=== PATIENT | male | born 1960 | race Caucasian/White ===

== ENCOUNTER 2021-12-15 12:09 | Inpatient (IN) | payer OTHER ==
[2021-12-15 13:09] VITALS: BMI 28.8
[2021-12-15] MEDS ORDERED: ACETAMINOPHEN 325 MG TABLET (FP) PO PRN (13:35)
[2021-12-15] MEDS ORDERED: IBUPROFEN 400 MG TABLET (FP) PO PRN (13:35)
[2021-12-15] MEDS ORDERED: guaiFENesin 200 MG/10 ML 10 ML UNIT-DOSE CUPS PO PRN (13:35)
[2021-12-15] MEDS ORDERED: MAGNESIUM CITRATE 300 ML BOTTLE PO PRN (13:35)
[2021-12-15] MEDS ORDERED: MAGNESIUM HYDROX 2400MG/30ML ORAL SUSPENSION 30 ML CUP PO PRN (13:35)
[2021-12-15] MEDS ORDERED: LOPERAMIDE HCL 2 MG CAPSULE PO PRN (13:35)
[2021-12-15] MEDS ORDERED: P-EPHED 60MG/TRIPROLIDI 2.5MG TABLET PO PRN (13:35)
[2021-12-15] MEDS ORDERED: LISINOPRIL 20 MG TABLET PO ONE (16:30)
[2021-12-15] MEDS ORDERED: LISINOPRIL 10 MG TABLET ONE (16:35)
[2021-12-15] MEDS: PRENATAL VITAMINS W/ FOLIC ACID TABLET (FP) PO SCH (16:58)
[2021-12-15] MEDS: hydrOXYzine PAMOATE 25 MG CAPSULE (FP) PO SCH ×3 (16:58→21:42)
[2021-12-15] MEDS ORDERED: TUBERCULIN PPD 5 TU/0.1ML VIAL ID ONE (17:20)
[2021-12-15] MEDS: NIFEdipine E.R. 90 MG TABLET PO SCH (17:38)
[2021-12-15] MEDS: MELATONIN 5 MG TABLETS PO SCH (21:42)
[2021-12-15] MEDS: THIAMINE HCL 100 MG TABLET (FP) PO SCH (21:42)
[2021-12-15] MEDS ORDERED: PATIENT'S OWN MEDICATION (NON-FORMULARY) (Lisinopril [Lisinopril] 40 MG Tablet) PO SCH (22:00)
[2021-12-16 02:40] LABS: EPI CELLS 3 /uL (0-25.1); HYALINE CASTS 1 /uL (0-3.1); URINE APPEARANCE TURBID; URINE BACTERIA 3 /uL (0-1359); URINE BILIRUBIN NEGATIVE (NEGATIVE); URINE COLOR YELLOW; URINE GLUCOSE (UA) NEGATIVE (NEGATIVE); URINE KETONE TRACE (NEGATIVE); URINE LEUK ESTERASE NEGATIVE (NEGATIVE); URINE NITRITE NEGATIVE (NEGATIVE); URINE PROTEIN NEGATIVE (NEGATIVE); URINE RBC 193 /uL (0-23.9); URINE WBC 6 /uL (0-25.8)
[2021-12-16] MEDS: methaDONE HCL 40 MG DISPERSABLE TABLET PO SCH (06:07)
[2021-12-16] MEDS: hydrOXYzine PAMOATE 25 MG CAPSULE (FP) PO SCH (06:07)
[2021-12-16] MEDS: PRENATAL VITAMINS W/ FOLIC ACID TABLET (FP) PO SCH (10:45)
[2021-12-16] MEDS: NIFEdipine E.R. 90 MG TABLET PO SCH (10:46)
[2021-12-16] MEDS: hydrOXYzine PAMOATE 25 MG CAPSULE (FP) PO PRN (10:46)
[2021-12-16] MEDS: LISINOPRIL 20 MG TABLET PO SCH ×2 (10:46→21:26)
[2021-12-16 13:04] LABS: HEMATOCRIT 32.3 % (35.4-49); MCH 30.4 pg (25.7-33.7); MEAN CELL VOLUME 89.4 fl (80-96); MEAN PLT VOLUME 9.2 fl (7.5-11.1); PLATELET COUNT 185 10^3/uL (134-434); RBC 3.61 M/mm3 (4.00-5.60); RDW 14.4 % (11.9-15.9); WHITE BLOOD COUNT 5.8 K/mm3 (4.0-10.0)
[2021-12-16 13:15] LABS: CALCIUM 8.2 mg/dL (8.5-10.1)
[2021-12-16 13:16] LABS: ALBUMIN 3.4 g/dl (3.4-5.0); BLOOD UREA NITROGEN 19.2 mg/dL (7-18)
[2021-12-16 13:19] LABS: CREATININE 1.1 mg/dL (0.55-1.3)
[2021-12-16 13:21] LABS: BILIRUBIN,TOTAL 0.7 mg/dL (0.2-1)
[2021-12-16 13:31] LABS: SYPHILIS W/ RPR CONF NON-REACTIVE (NONREACTIVE)
[2021-12-16] MEDS: THIAMINE HCL 100 MG TABLET (FP) PO SCH (21:26)
[2021-12-16] MEDS: MELATONIN 5 MG TABLETS PO SCH (21:26)
[2021-12-17] MEDS: methaDONE HCL 40 MG DISPERSABLE TABLET PO SCH (06:01)
[2021-12-17] MEDS: LISINOPRIL 20 MG TABLET PO SCH ×2 (11:16→22:23)
[2021-12-17] MEDS: PRENATAL VITAMINS W/ FOLIC ACID TABLET (FP) PO SCH (11:16)
[2021-12-17] MEDS: NIFEdipine E.R. 90 MG TABLET PO SCH (11:16)
[2021-12-17 14:11] LABS: SARS-CoV-2 NAA Not Detected (Not Detected)
[2021-12-17] MEDS: MELATONIN 5 MG TABLETS PO SCH (21:13)
[2021-12-17] MEDS: hydrOXYzine PAMOATE 25 MG CAPSULE (FP) PO PRN (21:13)
[2021-12-17] MEDS: THIAMINE HCL 100 MG TABLET (FP) PO SCH (21:13)
[2021-12-18] MEDS: methaDONE HCL 40 MG DISPERSABLE TABLET PO SCH (06:32)
[2021-12-18] MEDS: PRENATAL VITAMINS W/ FOLIC ACID TABLET (FP) PO SCH (10:26)
[2021-12-18] MEDS: NIFEdipine E.R. 90 MG TABLET PO SCH (10:27)
[2021-12-18] MEDS: LISINOPRIL 20 MG TABLET PO SCH ×2 (10:27→21:20)
[2021-12-18] MEDS: THIAMINE HCL 100 MG TABLET (FP) PO SCH (21:20)
[2021-12-18] MEDS: MELATONIN 5 MG TABLETS PO SCH (21:20)
[2021-12-19] MEDS: methaDONE HCL 40 MG DISPERSABLE TABLET PO SCH (06:17)
[2021-12-19] MEDS: NIFEdipine E.R. 90 MG TABLET PO SCH (10:34)
[2021-12-19] MEDS: LISINOPRIL 20 MG TABLET PO SCH ×2 (10:34→21:41)
[2021-12-19] MEDS: PRENATAL VITAMINS W/ FOLIC ACID TABLET (FP) PO SCH (10:35)
[2021-12-19] MEDS: valACYclovir HCL 500 MG TABLET (FP) PO SCH ×2 (12:07→21:41)
[2021-12-19] MEDS: MELATONIN 5 MG TABLETS PO SCH (21:42)
[2021-12-19] MEDS: THIAMINE HCL 100 MG TABLET (FP) PO SCH (21:42)
[2021-12-20] MEDS: methaDONE HCL 40 MG DISPERSABLE TABLET PO SCH (06:08)
[2021-12-20] MEDS: PRENATAL VITAMINS W/ FOLIC ACID TABLET (FP) PO SCH (09:54)
[2021-12-20] MEDS: LISINOPRIL 20 MG TABLET PO SCH ×2 (09:55→21:10)
[2021-12-20] MEDS: NIFEdipine E.R. 90 MG TABLET PO SCH (09:56)
[2021-12-20] MEDS: MELATONIN 5 MG TABLETS PO SCH (21:09)
[2021-12-20] MEDS: THIAMINE HCL 100 MG TABLET (FP) PO SCH (21:10)
[2021-12-21] MEDS: methaDONE HCL 40 MG DISPERSABLE TABLET PO SCH (06:21)
[2021-12-21] MEDS: LISINOPRIL 20 MG TABLET PO SCH ×2 (09:22→21:24)
[2021-12-21] MEDS: PRENATAL VITAMINS W/ FOLIC ACID TABLET (FP) PO SCH (09:22)
[2021-12-21] MEDS: NIFEdipine E.R. 90 MG TABLET PO SCH (09:23)
[2021-12-21] MEDS: THIAMINE HCL 100 MG TABLET (FP) PO SCH (21:24)
[2021-12-21] MEDS: MELATONIN 5 MG TABLETS PO SCH (21:24)
[2021-12-22] MEDS: methaDONE HCL 40 MG DISPERSABLE TABLET PO SCH (06:26)
[2021-12-22] MEDS ORDERED: diphenhydrAMINE HCL 25 MG CAPSULE (FP) PO PRN (09:13)
[2021-12-22] MEDS: PRENATAL VITAMINS W/ FOLIC ACID TABLET (FP) PO SCH (10:35)
[2021-12-22] MEDS: LISINOPRIL 20 MG TABLET PO SCH ×2 (10:35→21:18)
[2021-12-22] MEDS: NIFEdipine E.R. 90 MG TABLET PO SCH (10:35)
[2021-12-22] MEDS: THIAMINE HCL 100 MG TABLET (FP) PO SCH (21:17)
[2021-12-23] MEDS: methaDONE HCL 40 MG DISPERSABLE TABLET PO SCH (06:51)
[2021-12-23] MEDS: PRENATAL VITAMINS W/ FOLIC ACID TABLET (FP) PO SCH (10:18)
[2021-12-23] MEDS: LISINOPRIL 20 MG TABLET PO SCH ×2 (10:18→21:33)
[2021-12-23] MEDS: NIFEdipine E.R. 90 MG TABLET PO SCH (10:18)
[2021-12-23] MEDS: THIAMINE HCL 100 MG TABLET (FP) PO SCH (21:33)
[2021-12-23] MEDS: diphenhydrAMINE HCL 25 MG CAPSULE (FP) PO PRN (21:34)
[2021-12-24] MEDS: methaDONE HCL 40 MG DISPERSABLE TABLET PO SCH (06:25)
[2021-12-24] MEDS: PRENATAL VITAMINS W/ FOLIC ACID TABLET (FP) PO SCH (09:54)
[2021-12-24] MEDS: LISINOPRIL 20 MG TABLET PO SCH ×2 (09:54→21:19)
[2021-12-24] MEDS: NIFEdipine E.R. 90 MG TABLET PO SCH (09:54)
[2021-12-24] MEDS: hydrOXYzine PAMOATE 25 MG CAPSULE (FP) PO PRN (21:20)
[2021-12-24] MEDS: THIAMINE HCL 100 MG TABLET (FP) PO SCH (21:20)
[2021-12-25] MEDS: methaDONE HCL 40 MG DISPERSABLE TABLET PO SCH (06:31)
[2021-12-25] MEDS: LISINOPRIL 20 MG TABLET PO SCH ×2 (09:22→21:47)
[2021-12-25] MEDS: NIFEdipine E.R. 90 MG TABLET PO SCH (09:22)
[2021-12-25] MEDS: PRENATAL VITAMINS W/ FOLIC ACID TABLET (FP) PO SCH (09:22)
[2021-12-25] MEDS: hydrOXYzine PAMOATE 25 MG CAPSULE (FP) PO PRN (21:47)
[2021-12-25] MEDS: THIAMINE HCL 100 MG TABLET (FP) PO SCH (21:47)
[2021-12-26] MEDS: methaDONE HCL 40 MG DISPERSABLE TABLET PO SCH (06:30)
[2021-12-26] MEDS: NIFEdipine E.R. 90 MG TABLET PO SCH (10:17)
[2021-12-26] MEDS: PRENATAL VITAMINS W/ FOLIC ACID TABLET (FP) PO SCH (10:17)
[2021-12-26] MEDS: LISINOPRIL 20 MG TABLET PO SCH ×2 (10:17→21:24)
[2021-12-26] MEDS ORDERED: ZINC OXIDE/PETROLATUM,WHITE 1 APPLIC OINT...G. TP PRN (11:35)
[2021-12-26] MEDS: THIAMINE HCL 100 MG TABLET (FP) PO SCH (21:24)
[2021-12-26] MEDS: diphenhydrAMINE HCL 25 MG CAPSULE (FP) PO PRN (21:24)
[2021-12-27] MEDS: methaDONE HCL 40 MG DISPERSABLE TABLET PO SCH (06:26)
[2021-12-27] MEDS: PRENATAL VITAMINS W/ FOLIC ACID TABLET (FP) PO SCH (09:25)
[2021-12-27] MEDS: NIFEdipine E.R. 90 MG TABLET PO SCH (09:25)
[2021-12-27] MEDS: LISINOPRIL 20 MG TABLET PO SCH ×2 (10:38→21:17)
[2021-12-27] MEDS: THIAMINE HCL 100 MG TABLET (FP) PO SCH (21:16)
[2021-12-27] MEDS: diphenhydrAMINE HCL 25 MG CAPSULE (FP) PO PRN (21:17)
[2021-12-28] MEDS: methaDONE HCL 40 MG DISPERSABLE TABLET PO SCH (06:28)
[2021-12-28] MEDS: NIFEdipine E.R. 90 MG TABLET PO SCH (10:15)
[2021-12-28] MEDS: PRENATAL VITAMINS W/ FOLIC ACID TABLET (FP) PO SCH (10:15)
[2021-12-28] MEDS: LISINOPRIL 20 MG TABLET PO SCH ×2 (10:15→21:13)
[2021-12-28] MEDS: THIAMINE HCL 100 MG TABLET (FP) PO SCH (21:13)
[2021-12-28] MEDS: diphenhydrAMINE HCL 25 MG CAPSULE (FP) PO PRN (21:13)
[2021-12-29] MEDS: methaDONE HCL 40 MG DISPERSABLE TABLET PO SCH (06:03)
[2021-12-29] MEDS: LISINOPRIL 20 MG TABLET PO SCH ×2 (10:11→21:16)
[2021-12-29] MEDS: PRENATAL VITAMINS W/ FOLIC ACID TABLET (FP) PO SCH (10:12)
[2021-12-29] MEDS: NIFEdipine E.R. 90 MG TABLET PO SCH (10:12)
[2021-12-29] MEDS: THIAMINE HCL 100 MG TABLET (FP) PO SCH (21:16)
[2021-12-29] MEDS: diphenhydrAMINE HCL 25 MG CAPSULE (FP) PO PRN (21:16)
[2021-12-30] MEDS: methaDONE HCL 40 MG DISPERSABLE TABLET PO SCH (06:03)
[2021-12-30] MEDS: PRENATAL VITAMINS W/ FOLIC ACID TABLET (FP) PO SCH (10:39)
[2021-12-30] MEDS: LISINOPRIL 20 MG TABLET PO SCH ×2 (10:40→21:33)
[2021-12-30] MEDS: NIFEdipine E.R. 90 MG TABLET PO SCH (10:41)
[2021-12-30] MEDS: THIAMINE HCL 100 MG TABLET (FP) PO SCH (21:33)
[2021-12-30] MEDS: diphenhydrAMINE HCL 25 MG CAPSULE (FP) PO PRN (21:35)
[2021-12-31] MEDS: methaDONE HCL 40 MG DISPERSABLE TABLET PO SCH (06:39)
[2021-12-31] MEDS: PRENATAL VITAMINS W/ FOLIC ACID TABLET (FP) PO SCH (10:14)
[2021-12-31] MEDS: LISINOPRIL 20 MG TABLET PO SCH ×2 (10:14→21:16)
[2021-12-31] MEDS: NIFEdipine E.R. 90 MG TABLET PO SCH (10:15)
[2021-12-31] MEDS: diphenhydrAMINE HCL 25 MG CAPSULE (FP) PO PRN (21:16)
[2021-12-31] MEDS: THIAMINE HCL 100 MG TABLET (FP) PO SCH (21:16)
[2022-01-01] MEDS: methaDONE HCL 40 MG DISPERSABLE TABLET PO SCH (05:50)
[2022-01-01] MEDS: LISINOPRIL 20 MG TABLET PO SCH ×2 (09:24→21:15)
[2022-01-01] MEDS: PRENATAL VITAMINS W/ FOLIC ACID TABLET (FP) PO SCH (09:24)
[2022-01-01] MEDS: NIFEdipine E.R. 90 MG TABLET PO SCH (09:24)
[2022-01-01] MEDS: COLLOIDAL OATMEAL 1 BAR EACH TP PRN (09:26)
[2022-01-01] MEDS: diphenhydrAMINE HCL 25 MG CAPSULE (FP) PO PRN (21:15)
[2022-01-01] MEDS: THIAMINE HCL 100 MG TABLET (FP) PO SCH (21:15)
[2022-01-02] MEDS: methaDONE HCL 40 MG DISPERSABLE TABLET PO SCH (06:22)
[2022-01-02] MEDS: PRENATAL VITAMINS W/ FOLIC ACID TABLET (FP) PO SCH (09:52)
[2022-01-02] MEDS: NIFEdipine E.R. 90 MG TABLET PO SCH (09:52)
[2022-01-02] MEDS: LISINOPRIL 20 MG TABLET PO SCH ×2 (09:52→21:55)
[2022-01-02] MEDS: THIAMINE HCL 100 MG TABLET (FP) PO SCH (21:55)
[2022-01-02] MEDS: diphenhydrAMINE HCL 25 MG CAPSULE (FP) PO PRN (21:56)
[2022-01-03] MEDS: methaDONE HCL 40 MG DISPERSABLE TABLET PO SCH (06:03)
[2022-01-03] MEDS: PRENATAL VITAMINS W/ FOLIC ACID TABLET (FP) PO SCH (10:43)
[2022-01-03] MEDS: NIFEdipine E.R. 90 MG TABLET PO SCH (10:44)
[2022-01-03] MEDS: LISINOPRIL 20 MG TABLET PO SCH ×2 (10:44→21:14)
[2022-01-03] MEDS: THIAMINE HCL 100 MG TABLET (FP) PO SCH (21:14)
[2022-01-03] MEDS: diphenhydrAMINE HCL 25 MG CAPSULE (FP) PO PRN (21:14)
[2022-01-04] MEDS: methaDONE HCL 40 MG DISPERSABLE TABLET PO SCH (05:39)
[2022-01-04] MEDS: PRENATAL VITAMINS W/ FOLIC ACID TABLET (FP) PO SCH (10:26)
[2022-01-04] MEDS: NIFEdipine E.R. 90 MG TABLET PO SCH (10:26)
[2022-01-04] MEDS: LISINOPRIL 20 MG TABLET PO SCH ×2 (10:27→21:20)
[2022-01-04] MEDS: THIAMINE HCL 100 MG TABLET (FP) PO SCH (21:19)
[2022-01-04] MEDS: diphenhydrAMINE HCL 25 MG CAPSULE (FP) PO PRN (21:20)
[2022-01-05] MEDS: methaDONE HCL 40 MG DISPERSABLE TABLET PO SCH (06:02)
[2022-01-05] MEDS: PRENATAL VITAMINS W/ FOLIC ACID TABLET (FP) PO SCH (09:56)
[2022-01-05] MEDS: NIFEdipine E.R. 90 MG TABLET PO SCH (09:57)
[2022-01-05] MEDS: LISINOPRIL 20 MG TABLET PO SCH ×2 (09:57→21:10)
[2022-01-05] MEDS: COLLOIDAL OATMEAL 1 BAR EACH TP PRN (19:46)
[2022-01-05] MEDS: THIAMINE HCL 100 MG TABLET (FP) PO SCH (21:10)
[2022-01-05] MEDS: diphenhydrAMINE HCL 25 MG CAPSULE (FP) PO PRN (21:10)
[2022-01-06] MEDS: methaDONE HCL 40 MG DISPERSABLE TABLET PO SCH (06:04)
[2022-01-06] MEDS: PRENATAL VITAMINS W/ FOLIC ACID TABLET (FP) PO SCH (10:14)
[2022-01-06] MEDS: LISINOPRIL 20 MG TABLET PO SCH ×2 (10:14→21:49)
[2022-01-06] MEDS: NIFEdipine E.R. 90 MG TABLET PO SCH (10:14)
[2022-01-06] MEDS: THIAMINE HCL 100 MG TABLET (FP) PO SCH (21:49)
[2022-01-06] MEDS: diphenhydrAMINE HCL 25 MG CAPSULE (FP) PO PRN (21:50)
[2022-01-07] MEDS: methaDONE HCL 40 MG DISPERSABLE TABLET PO SCH (06:09)
[2022-01-07] MEDS: NIFEdipine E.R. 90 MG TABLET PO SCH (09:39)
[2022-01-07] MEDS: PRENATAL VITAMINS W/ FOLIC ACID TABLET (FP) PO SCH (09:39)
[2022-01-07] MEDS: LISINOPRIL 20 MG TABLET PO SCH ×2 (09:39→21:39)
[2022-01-07] MEDS: MAG HYDROX/AL HYDROX/SIMETH 30 ML UNIT-DOSE CUP PO PRN (12:44)
[2022-01-07] MEDS: diphenhydrAMINE HCL 25 MG CAPSULE (FP) PO PRN (21:40)
[2022-01-07] MEDS: THIAMINE HCL 100 MG TABLET (FP) PO SCH (21:40)
[2022-01-08] MEDS: PANTOPRAZOLE 40 MG TABLET PO SCH ×2 (06:26→10:06)
[2022-01-08] MEDS: methaDONE HCL 40 MG DISPERSABLE TABLET PO SCH (06:26)
[2022-01-08] MEDS: MAG HYDROX/AL HYDROX/SIMETH 30 ML UNIT-DOSE CUP PO PRN (08:19)
[2022-01-08] MEDS: PRENATAL VITAMINS W/ FOLIC ACID TABLET (FP) PO SCH (10:05)
[2022-01-08] MEDS: LISINOPRIL 20 MG TABLET PO SCH ×2 (10:05→21:35)
[2022-01-08] MEDS: NIFEdipine E.R. 90 MG TABLET PO SCH (10:06)
[2022-01-08] MEDS: THIAMINE HCL 100 MG TABLET (FP) PO SCH (21:36)
[2022-01-08] MEDS: diphenhydrAMINE HCL 25 MG CAPSULE (FP) PO PRN (21:37)
[2022-01-09] MEDS: methaDONE HCL 40 MG DISPERSABLE TABLET PO SCH (06:09)
[2022-01-09] MEDS: PRENATAL VITAMINS W/ FOLIC ACID TABLET (FP) PO SCH (09:38)
[2022-01-09] MEDS: NIFEdipine E.R. 90 MG TABLET PO SCH (09:38)
[2022-01-09] MEDS: LISINOPRIL 20 MG TABLET PO SCH ×2 (09:39→21:31)
[2022-01-09] MEDS: PANTOPRAZOLE 40 MG TABLET PO SCH (09:39)
[2022-01-09] MEDS: THIAMINE HCL 100 MG TABLET (FP) PO SCH (21:31)
[2022-01-09] MEDS: diphenhydrAMINE HCL 25 MG CAPSULE (FP) PO PRN (21:32)
[2022-01-10] MEDS: methaDONE HCL 40 MG DISPERSABLE TABLET PO SCH (06:10)
[2022-01-10] MEDS: LISINOPRIL 20 MG TABLET PO SCH ×2 (09:49→21:23)
[2022-01-10] MEDS: PRENATAL VITAMINS W/ FOLIC ACID TABLET (FP) PO SCH (09:49)
[2022-01-10] MEDS: NIFEdipine E.R. 90 MG TABLET PO SCH (09:49)
[2022-01-10] MEDS: PANTOPRAZOLE 40 MG TABLET PO SCH (09:50)
[2022-01-10 11:34] LABS: CALCIUM 8.9 mg/dL (8.5-10.1)
[2022-01-10 11:35] LABS: ALBUMIN 3.8 g/dl (3.4-5.0)
[2022-01-10 11:38] LABS: CREATININE 1.1 mg/dL (0.55-1.3)
[2022-01-10 11:39] LABS: BILIRUBIN,TOTAL 0.5 mg/dL (0.2-1)
[2022-01-10] MEDS: THIAMINE HCL 100 MG TABLET (FP) PO SCH (21:22)
[2022-01-10] MEDS: diphenhydrAMINE HCL 25 MG CAPSULE (FP) PO PRN (21:22)
[2022-01-11] MEDS: methaDONE HCL 40 MG DISPERSABLE TABLET PO SCH (05:26)
[2022-01-11] MEDS: PRENATAL VITAMINS W/ FOLIC ACID TABLET (FP) PO SCH (10:08)
[2022-01-11] MEDS: PANTOPRAZOLE 40 MG TABLET PO SCH (10:08)
[2022-01-11] MEDS: NIFEdipine E.R. 90 MG TABLET PO SCH (10:08)
[2022-01-11] MEDS: LISINOPRIL 20 MG TABLET PO SCH ×2 (10:08→21:16)
[2022-01-11] MEDS: THIAMINE HCL 100 MG TABLET (FP) PO SCH (21:16)
[2022-01-11] MEDS: diphenhydrAMINE HCL 25 MG CAPSULE (FP) PO PRN (21:16)
[2022-01-12] MEDS: methaDONE HCL 40 MG DISPERSABLE TABLET PO SCH (06:25)
[2022-01-12 07:15] VITALS: TEMP 98.8
[2022-01-12] MEDS: PRENATAL VITAMINS W/ FOLIC ACID TABLET (FP) PO SCH (09:44)
[2022-01-12] MEDS: NIFEdipine E.R. 90 MG TABLET PO SCH (09:44)
[2022-01-12] MEDS: LISINOPRIL 20 MG TABLET PO SCH ×2 (09:44→21:17)
[2022-01-12] MEDS: PANTOPRAZOLE 40 MG TABLET PO SCH (09:45)
[2022-01-12] MEDS: THIAMINE HCL 100 MG TABLET (FP) PO SCH (21:17)
[2022-01-12] MEDS: diphenhydrAMINE HCL 25 MG CAPSULE (FP) PO PRN (21:17)
[2022-01-13] MEDS: methaDONE HCL 40 MG DISPERSABLE TABLET PO SCH (06:08)
[2022-01-13 07:13] VITALS: BP 152/94; PULSE 75
[2022-01-13] MEDS: PRENATAL VITAMINS W/ FOLIC ACID TABLET (FP) PO SCH (09:13)
[2022-01-13] MEDS: NIFEdipine E.R. 90 MG TABLET PO SCH (09:14)
[2022-01-13] MEDS: LISINOPRIL 20 MG TABLET PO SCH (09:14)
[2022-01-13] MEDS: PANTOPRAZOLE 40 MG TABLET PO SCH (09:15)
== END 2022-01-13 09:30 | disposition home or self-care (01) | DRG 772 ==
LOC: YASAS 12:09 → Y3W 15:39
PROVIDERS: ADMIT Allergy & Immunology; ATTEND Allergy & Immunology
PROC: HZ42ZZZ Group Counseling for Substance Abuse Treatment, Cognitive-Behavioral (ICD-10-PCS; principal; 2021-12-15)
DX: F11.20 Opioid dependence, uncomplicated (principal); F14.20 Cocaine dependence, uncomplicated; F19.282 Other psychoactive substance dependence with psychoactive substance-induced sleep disorder; F19.24 Other psychoactive substance dependence with psychoactive substance-induced mood disorder; I10 Essential (primary) hypertension; E78.5 Hyperlipidemia, unspecified; R12 Heartburn; B00.1 Herpesviral vesicular dermatitis; M54.30 Sciatica, unspecified side; Z87.891 Personal history of nicotine dependence; Z56.0 Unemployment, unspecified; Z59.00 Homelessness unspecified
CPT/HCPCS: 36415; 80053; 81003; 85027; 86780; 86803; 93005; 93010; C9803-CS; U0003; U0005

== ENCOUNTER 2023-02-24 12:29 | Inpatient (IN) | payer OTHER ==
[2023-02-24 13:21] VITALS: BMI 28.6
[2023-02-24] MEDS ORDERED: guaiFENesin 600 MG TABLET.ER (FP) PO PRN (14:29)
[2023-02-24] MEDS ORDERED: BENZONATATE 200 MG CAPSULE PO PRN (14:29)
[2023-02-24] MEDS ORDERED: LOPERAMIDE HCL 2 MG CAPSULE PO PRN (14:29)
[2023-02-24] MEDS ORDERED: TUBERCULIN PPD 5 TU/0.1ML SYRINGE (IN PATIENT USE ONLY) ID ONE (14:29)
[2023-02-24] MEDS ORDERED: MAG HYDROX/AL HYDROX/SIMETH 30 ML UNIT-DOSE CUP PO PRN (14:29)
[2023-02-24] MEDS ORDERED: BENZOCAINE/MENTHOL (CHLORASEPTIC ) LOZENGE MM PRN (14:29)
[2023-02-24] MEDS ORDERED: NALOXONE HCL 0.4 MG/ML VIAL IM PRN (14:29)
[2023-02-24] MEDS ORDERED: POLYETHYLENE GLYCOL (HEALTHYLAX) 3350 17 GM PACKET PO PRN (14:29)
[2023-02-24] MEDS ORDERED: MAGNESIUM HYDROX 2400MG/30ML ORAL SUSPENSION 30 ML CUP PO PRN (14:29)
[2023-02-24] MEDS ORDERED: IBUPROFEN 600 MG TABLET (FP) PO PRN (14:29)
[2023-02-24] MEDS ORDERED: AMMONIUM LACTATE 12% LOTION 225 GM BOTTLE TP PRN (14:29)
[2023-02-24] MEDS ORDERED: LIDOCAINE 5% TOPICAL PATCH TP PRN (14:29)
[2023-02-24] MEDS ORDERED: NALOXONE HCL (KLOXXADO) 8 MG SPRAY NS PRN (14:29)
[2023-02-24] MEDS ORDERED: IBUPROFEN 400 MG TABLET (FP) PO PRN (14:29)
[2023-02-24] MEDS ORDERED: TUBERCULIN PPD 5 TU/0.1ML VIAL ID ONE (16:43)
[2023-02-24] MEDS: MELATONIN 5 MG TABLETS PO SCH (21:18)
[2023-02-24] MEDS: THIAMINE HCL 100 MG TABLET (FP) PO SCH (21:18)
[2023-02-24] MEDS: LISINOPRIL 20 MG TABLET PO SCH (21:19)
[2023-02-24] MEDS: LIDOCAINE PATCH REMOVAL MC SCH (21:19)
[2023-02-24] MEDS: BISACODYL 5 MG TABLET.DR (FP) PO SCH ×2 (21:19→21:32)
[2023-02-25] MEDS ORDERED: TUBERCULIN PPD 5 TU/0.1ML VIAL ID ONE (05:58)
[2023-02-25] MEDS ORDERED: methaDONE HCL 40 MG DISPERSABLE TABLET PO ONE (06:00)
[2023-02-25 10:03] LABS: CALCIUM 8.8 mg/dL (8.5-10.1); CREATININE 0.9 mg/dL (0.55-1.3)
[2023-02-25 10:04] LABS: ALBUMIN 3.7 g/dl (3.4-5.0); BLOOD UREA NITROGEN 10.3 mg/dL (7-18)
[2023-02-25 10:05] LABS: BILIRUBIN,TOTAL 0.3 mg/dL (0.2-1); TOT PROT 7.2 g/dl (6.4-8.2)
[2023-02-25 10:07] LABS: HEMATOCRIT 36.7 % (35.4-49); HEMOGLOBIN 12.8 GM/dL (11.7-16.9); MCH 29.6 pg (25.7-33.7); MCHC 34.9 g/dl (32.0-35.9); MEAN PLT VOLUME 9.2 fl (7.5-11.1); PLATELET COUNT 247 10^3/uL (134-434); RBC 4.32 M/mm3 (4.00-5.60); RDW 14.5 % (11.9-15.9); WHITE BLOOD COUNT 4.6 K/mm3 (4.0-10.0)
[2023-02-25] MEDS: PRENATAL VITAMINS W/ FOLIC ACID TABLET (FP) PO SCH (10:09)
[2023-02-25] MEDS: LISINOPRIL 20 MG TABLET PO SCH ×2 (10:09→21:16)
[2023-02-25] MEDS: NIFEdipine E.R. 90 MG TABLET PO SCH (10:09)
[2023-02-25 10:53] LABS: SYPHILIS W/ RPR CONF NON-REACTIVE (NONREACTIVE)
[2023-02-25] MEDS: THIAMINE HCL 100 MG TABLET (FP) PO SCH (21:15)
[2023-02-25] MEDS: LIDOCAINE PATCH REMOVAL MC SCH (21:15)
[2023-02-25] MEDS: MELATONIN 5 MG TABLETS PO SCH (21:15)
[2023-02-25] MEDS: BISACODYL 5 MG TABLET.DR (FP) PO SCH (21:16)
[2023-02-26] MEDS: hydrOXYzine PAMOATE 25 MG CAPSULE (FP) PO PRN (01:49)
[2023-02-26] MEDS: methaDONE HCL 40 MG DISPERSABLE TABLET PO SCH (06:36)
[2023-02-26] MEDS: PRENATAL VITAMINS W/ FOLIC ACID TABLET (FP) PO SCH (09:46)
[2023-02-26] MEDS: LISINOPRIL 20 MG TABLET PO SCH ×2 (09:46→21:20)
[2023-02-26] MEDS: NIFEdipine E.R. 90 MG TABLET PO SCH (10:46)
[2023-02-26] MEDS: MELATONIN 5 MG TABLETS PO SCH (21:20)
[2023-02-26] MEDS: BISACODYL 5 MG TABLET.DR (FP) PO SCH (21:20)
[2023-02-26] MEDS: THIAMINE HCL 100 MG TABLET (FP) PO SCH (21:20)
[2023-02-26] MEDS: LIDOCAINE PATCH REMOVAL MC SCH (21:21)
[2023-02-26 23:19] LABS: PH,URINE 6.5 (5.0-8.0); URINE APPEARANCE CLEAR; URINE BILIRUBIN NEGATIVE (NEGATIVE); URINE COLOR YELLOW; URINE GLUCOSE (UA) NEGATIVE (NEGATIVE); URINE KETONE NEGATIVE (NEGATIVE); URINE LEUK ESTERASE NEGATIVE (NEGATIVE); URINE NITRITE NEGATIVE (NEGATIVE); URINE PROTEIN NEGATIVE (NEGATIVE); URINE UROBILINOGEN 0.2 mg/dL (0.2-1.0)
[2023-02-27] MEDS: methaDONE HCL 40 MG DISPERSABLE TABLET PO SCH (06:11)
[2023-02-27] MEDS: ACETAMINOPHEN 325 MG TABLET (FP) PO PRN (06:26)
[2023-02-27] MEDS: LISINOPRIL 20 MG TABLET PO SCH ×2 (10:02→21:42)
[2023-02-27] MEDS: PRENATAL VITAMINS W/ FOLIC ACID TABLET (FP) PO SCH (10:02)
[2023-02-27] MEDS: NIFEdipine E.R. 90 MG TABLET PO SCH (10:02)
[2023-02-27] MEDS: LIDOCAINE PATCH REMOVAL MC SCH (21:42)
[2023-02-27] MEDS: BISACODYL 5 MG TABLET.DR (FP) PO SCH (21:42)
[2023-02-27] MEDS: MELATONIN 5 MG TABLETS PO SCH (21:42)
[2023-02-27] MEDS: THIAMINE HCL 100 MG TABLET (FP) PO SCH (21:42)
[2023-02-28] MEDS: hydrOXYzine PAMOATE 25 MG CAPSULE (FP) PO PRN (02:26)
[2023-02-28] MEDS: ACETAMINOPHEN 325 MG TABLET (FP) PO PRN (02:26)
[2023-02-28] MEDS: methaDONE HCL 40 MG DISPERSABLE TABLET PO SCH (06:15)
[2023-02-28] MEDS: PRENATAL VITAMINS W/ FOLIC ACID TABLET (FP) PO SCH (09:29)
[2023-02-28] MEDS: LISINOPRIL 20 MG TABLET PO SCH ×2 (09:29→21:21)
[2023-02-28] MEDS: NIFEdipine E.R. 90 MG TABLET PO SCH (09:29)
[2023-02-28] MEDS ORDERED: PATIENT'S OWN MEDICATION (NON-FORMULARY) (Lisinopril [Lisinopril] 40 MG Tablet) PO SCH (14:00)
[2023-02-28] MEDS: BISACODYL 5 MG TABLET.DR (FP) PO SCH (21:21)
[2023-02-28] MEDS: LIDOCAINE PATCH REMOVAL MC SCH (21:21)
[2023-02-28] MEDS: THIAMINE HCL 100 MG TABLET (FP) PO SCH (21:21)
[2023-02-28] MEDS ORDERED: SUVOREXANT 10 MG TABLET PO PRN (22:00)
[2023-03-01] MEDS: methaDONE HCL 40 MG DISPERSABLE TABLET PO SCH (06:12)
[2023-03-01] MEDS: LISINOPRIL 20 MG TABLET PO SCH ×2 (09:55→21:09)
[2023-03-01] MEDS: PRENATAL VITAMINS W/ FOLIC ACID TABLET (FP) PO SCH (09:58)
[2023-03-01] MEDS: NIFEdipine E.R. 90 MG TABLET PO SCH (09:58)
[2023-03-01] MEDS: THIAMINE HCL 100 MG TABLET (FP) PO SCH (21:09)
[2023-03-01] MEDS: BISACODYL 5 MG TABLET.DR (FP) PO SCH (21:09)
[2023-03-01] MEDS: LIDOCAINE PATCH REMOVAL MC SCH (21:10)
[2023-03-01] MEDS: SUVOREXANT 15 MG TABLET PO PRN (21:11)
[2023-03-02] MEDS: methaDONE HCL 40 MG DISPERSABLE TABLET PO SCH (06:36)
[2023-03-02] MEDS: cloNIDine HCL 0.1 MG TABLET PO PRN (07:37)
[2023-03-02] MEDS: PRENATAL VITAMINS W/ FOLIC ACID TABLET (FP) PO SCH (10:14)
[2023-03-02] MEDS: LISINOPRIL 20 MG TABLET PO SCH ×2 (10:14→21:15)
[2023-03-02] MEDS: NIFEdipine E.R. 90 MG TABLET PO SCH (10:14)
[2023-03-02] MEDS: THIAMINE HCL 100 MG TABLET (FP) PO SCH (21:14)
[2023-03-02] MEDS: LIDOCAINE PATCH REMOVAL MC SCH (21:15)
[2023-03-02] MEDS: BISACODYL 5 MG TABLET.DR (FP) PO SCH (21:15)
[2023-03-02] MEDS: SUVOREXANT 15 MG TABLET PO PRN (21:15)
[2023-03-03] MEDS: methaDONE HCL 40 MG DISPERSABLE TABLET PO SCH (06:27)
[2023-03-03] MEDS: NIFEdipine E.R. 90 MG TABLET PO SCH (09:31)
[2023-03-03] MEDS: LISINOPRIL 20 MG TABLET PO SCH ×2 (09:31→21:39)
[2023-03-03] MEDS: PRENATAL VITAMINS W/ FOLIC ACID TABLET (FP) PO SCH (09:31)
[2023-03-03] MEDS: BISACODYL 5 MG TABLET.DR (FP) PO SCH (21:39)
[2023-03-03] MEDS: cloNIDine HCL 0.1 MG TABLET PO PRN (21:39)
[2023-03-03] MEDS: THIAMINE HCL 100 MG TABLET (FP) PO SCH (21:39)
[2023-03-03] MEDS: LIDOCAINE PATCH REMOVAL MC SCH (21:40)
[2023-03-03] MEDS: SUVOREXANT 15 MG TABLET PO PRN (21:40)
[2023-03-04] MEDS: methaDONE HCL 40 MG DISPERSABLE TABLET PO SCH (06:05)
[2023-03-04] MEDS: LISINOPRIL 20 MG TABLET PO SCH ×2 (10:13→21:43)
[2023-03-04] MEDS: NIFEdipine E.R. 90 MG TABLET PO SCH (10:13)
[2023-03-04] MEDS: PRENATAL VITAMINS W/ FOLIC ACID TABLET (FP) PO SCH (10:14)
[2023-03-04] MEDS: cloNIDine HCL 0.1 MG TABLET PO PRN (21:43)
[2023-03-04] MEDS: THIAMINE HCL 100 MG TABLET (FP) PO SCH (21:43)
[2023-03-04] MEDS: LIDOCAINE PATCH REMOVAL MC SCH (21:44)
[2023-03-04] MEDS: BISACODYL 5 MG TABLET.DR (FP) PO SCH (21:45)
[2023-03-04] MEDS: SUVOREXANT 15 MG TABLET PO PRN (21:45)
[2023-03-05] MEDS: methaDONE HCL 40 MG DISPERSABLE TABLET PO SCH ×2 (06:41→06:42)
[2023-03-05] MEDS: PRENATAL VITAMINS W/ FOLIC ACID TABLET (FP) PO SCH (09:35)
[2023-03-05] MEDS: NIFEdipine E.R. 90 MG TABLET PO SCH (09:35)
[2023-03-05] MEDS: LISINOPRIL 20 MG TABLET PO SCH ×2 (09:35→21:18)
[2023-03-05] MEDS: SUVOREXANT 15 MG TABLET PO PRN (21:18)
[2023-03-05] MEDS: THIAMINE HCL 100 MG TABLET (FP) PO SCH (21:18)
[2023-03-05] MEDS: cloNIDine HCL 0.1 MG TABLET PO PRN (21:18)
[2023-03-05] MEDS: BISACODYL 5 MG TABLET.DR (FP) PO SCH (21:19)
[2023-03-06] MEDS: methaDONE HCL 40 MG DISPERSABLE TABLET PO SCH (06:30)
[2023-03-06] MEDS: LISINOPRIL 20 MG TABLET PO SCH ×2 (09:53→21:14)
[2023-03-06] MEDS: PRENATAL VITAMINS W/ FOLIC ACID TABLET (FP) PO SCH (09:53)
[2023-03-06] MEDS: NIFEdipine E.R. 90 MG TABLET PO SCH (09:53)
[2023-03-06] MEDS: THIAMINE HCL 100 MG TABLET (FP) PO SCH (21:14)
[2023-03-06] MEDS: LIDOCAINE 5% TOPICAL PATCH TP SCH (21:15)
[2023-03-06] MEDS: BISACODYL 5 MG TABLET.DR (FP) PO SCH (21:15)
[2023-03-06] MEDS: SUVOREXANT 15 MG TABLET PO PRN (21:15)
[2023-03-07] MEDS: methaDONE HCL 40 MG DISPERSABLE TABLET PO SCH (06:13)
[2023-03-07] MEDS: PRENATAL VITAMINS W/ FOLIC ACID TABLET (FP) PO SCH (09:37)
[2023-03-07] MEDS: NIFEdipine E.R. 90 MG TABLET PO SCH (09:38)
[2023-03-07] MEDS: LISINOPRIL 20 MG TABLET PO SCH ×2 (09:38→21:14)
[2023-03-07] MEDS: LIDOCAINE PATCH REMOVAL MC SCH (10:21)
[2023-03-07] MEDS: LIDOCAINE 5% TOPICAL PATCH TP SCH ×2 (10:21→21:15)
[2023-03-07] MEDS: THIAMINE HCL 100 MG TABLET (FP) PO SCH (21:14)
[2023-03-07] MEDS: BISACODYL 5 MG TABLET.DR (FP) PO SCH (21:15)
[2023-03-07] MEDS: SUVOREXANT 15 MG TABLET PO PRN (21:15)
[2023-03-08] MEDS: methaDONE HCL 40 MG DISPERSABLE TABLET PO SCH (06:20)
[2023-03-08] MEDS: LISINOPRIL 20 MG TABLET PO SCH ×2 (10:24→21:12)
[2023-03-08] MEDS: PRENATAL VITAMINS W/ FOLIC ACID TABLET (FP) PO SCH (10:25)
[2023-03-08] MEDS: LIDOCAINE PATCH REMOVAL MC SCH (10:25)
[2023-03-08] MEDS: NIFEdipine E.R. 90 MG TABLET PO SCH (10:25)
[2023-03-08] MEDS: LIDOCAINE 5% TOPICAL PATCH TP SCH (21:13)
[2023-03-08] MEDS: THIAMINE HCL 100 MG TABLET (FP) PO SCH (21:13)
[2023-03-08] MEDS: BISACODYL 5 MG TABLET.DR (FP) PO SCH (21:13)
[2023-03-09] MEDS: methaDONE HCL 40 MG DISPERSABLE TABLET PO SCH (06:22)
[2023-03-09] MEDS: PRENATAL VITAMINS W/ FOLIC ACID TABLET (FP) PO SCH (09:27)
[2023-03-09] MEDS: LISINOPRIL 20 MG TABLET PO SCH ×2 (09:28→21:22)
[2023-03-09] MEDS: NIFEdipine E.R. 90 MG TABLET PO SCH (09:29)
[2023-03-09] MEDS: LIDOCAINE PATCH REMOVAL MC SCH (09:30)
[2023-03-09] MEDS: THIAMINE HCL 100 MG TABLET (FP) PO SCH (21:22)
[2023-03-09] MEDS: cloNIDine HCL 0.1 MG TABLET PO PRN (21:23)
[2023-03-09] MEDS: BISACODYL 5 MG TABLET.DR (FP) PO SCH (21:24)
[2023-03-09] MEDS ORDERED: LIDOCAINE 5% TOPICAL PATCH TP SCH (22:00)
[2023-03-10] MEDS: methaDONE HCL 40 MG DISPERSABLE TABLET PO SCH (06:19)
[2023-03-10] MEDS: LISINOPRIL 20 MG TABLET PO SCH ×2 (09:32→21:20)
[2023-03-10] MEDS: PRENATAL VITAMINS W/ FOLIC ACID TABLET (FP) PO SCH (09:32)
[2023-03-10] MEDS: LIDOCAINE PATCH REMOVAL MC SCH ×2 (09:32→21:19)
[2023-03-10] MEDS: NIFEdipine E.R. 90 MG TABLET PO SCH (09:32)
[2023-03-10] MEDS: LIDOCAINE 5% TOPICAL PATCH TP SCH (11:54)
[2023-03-10] MEDS: THIAMINE HCL 100 MG TABLET (FP) PO SCH (21:19)
[2023-03-10] MEDS: BISACODYL 5 MG TABLET.DR (FP) PO SCH (21:20)
[2023-03-11] MEDS: methaDONE HCL 40 MG DISPERSABLE TABLET PO SCH (06:13)
[2023-03-11] MEDS: LIDOCAINE 5% TOPICAL PATCH TP SCH (09:50)
[2023-03-11] MEDS: PRENATAL VITAMINS W/ FOLIC ACID TABLET (FP) PO SCH (09:51)
[2023-03-11] MEDS: LISINOPRIL 20 MG TABLET PO SCH ×2 (09:51→21:23)
[2023-03-11] MEDS: NIFEdipine E.R. 90 MG TABLET PO SCH (09:51)
[2023-03-11] MEDS: LIDOCAINE PATCH REMOVAL MC SCH ×2 (09:52→21:23)
[2023-03-11] MEDS: BISACODYL 5 MG TABLET.DR (FP) PO SCH (21:23)
[2023-03-11] MEDS: THIAMINE HCL 100 MG TABLET (FP) PO SCH (21:23)
[2023-03-11] MEDS: SUVOREXANT 15 MG TABLET PO PRN (21:24)
[2023-03-12] MEDS: methaDONE HCL 40 MG DISPERSABLE TABLET PO SCH (06:28)
[2023-03-12] MEDS: LIDOCAINE 5% TOPICAL PATCH TP SCH (09:47)
[2023-03-12] MEDS: LISINOPRIL 20 MG TABLET PO SCH ×2 (09:51→21:15)
[2023-03-12] MEDS: PRENATAL VITAMINS W/ FOLIC ACID TABLET (FP) PO SCH (09:51)
[2023-03-12] MEDS: NIFEdipine E.R. 90 MG TABLET PO SCH (09:52)
[2023-03-12] MEDS: LIDOCAINE PATCH REMOVAL MC SCH ×2 (09:52→21:16)
[2023-03-12] MEDS: BISACODYL 5 MG TABLET.DR (FP) PO SCH (21:15)
[2023-03-12] MEDS: THIAMINE HCL 100 MG TABLET (FP) PO SCH (21:15)
[2023-03-12] MEDS: SUVOREXANT 15 MG TABLET PO PRN (21:16)
[2023-03-13] MEDS: methaDONE HCL 40 MG DISPERSABLE TABLET PO SCH (06:10)
[2023-03-13] MEDS: PRENATAL VITAMINS W/ FOLIC ACID TABLET (FP) PO SCH (09:39)
[2023-03-13] MEDS: LIDOCAINE 5% TOPICAL PATCH TP SCH (09:40)
[2023-03-13] MEDS: LISINOPRIL 20 MG TABLET PO SCH ×2 (09:41→21:26)
[2023-03-13] MEDS: NIFEdipine E.R. 90 MG TABLET PO SCH (09:41)
[2023-03-13] MEDS: LIDOCAINE PATCH REMOVAL MC SCH ×2 (09:42→22:19)
[2023-03-13] MEDS: BISACODYL 5 MG TABLET.DR (FP) PO SCH (21:26)
[2023-03-13] MEDS: THIAMINE HCL 100 MG TABLET (FP) PO SCH (21:26)
[2023-03-13] MEDS: SUVOREXANT 15 MG TABLET PO PRN (21:26)
[2023-03-14] MEDS: methaDONE HCL 40 MG DISPERSABLE TABLET PO SCH (06:10)
[2023-03-14] MEDS: LIDOCAINE 5% TOPICAL PATCH TP SCH (09:33)
[2023-03-14] MEDS: PRENATAL VITAMINS W/ FOLIC ACID TABLET (FP) PO SCH (09:34)
[2023-03-14] MEDS: LISINOPRIL 20 MG TABLET PO SCH ×2 (09:34→21:03)
[2023-03-14] MEDS: NIFEdipine E.R. 90 MG TABLET PO SCH (09:35)
[2023-03-14] MEDS: LIDOCAINE PATCH REMOVAL MC SCH ×2 (09:35→21:03)
[2023-03-14] MEDS: THIAMINE HCL 100 MG TABLET (FP) PO SCH (21:03)
[2023-03-14] MEDS: BISACODYL 5 MG TABLET.DR (FP) PO SCH (21:03)
[2023-03-14] MEDS: SUVOREXANT 15 MG TABLET PO PRN (21:04)
[2023-03-15] MEDS: methaDONE HCL 40 MG DISPERSABLE TABLET PO SCH (06:19)
[2023-03-15] MEDS: LIDOCAINE PATCH REMOVAL MC SCH ×2 (09:44→21:12)
[2023-03-15] MEDS: PRENATAL VITAMINS W/ FOLIC ACID TABLET (FP) PO SCH (09:44)
[2023-03-15] MEDS: LIDOCAINE 5% TOPICAL PATCH TP SCH (09:44)
[2023-03-15] MEDS: NIFEdipine E.R. 90 MG TABLET PO SCH (09:45)
[2023-03-15] MEDS: LISINOPRIL 20 MG TABLET PO SCH ×2 (09:45→21:12)
[2023-03-15] MEDS: BISACODYL 5 MG TABLET.DR (FP) PO SCH (21:12)
[2023-03-15] MEDS: THIAMINE HCL 100 MG TABLET (FP) PO SCH (21:12)
[2023-03-15] MEDS: SUVOREXANT 15 MG TABLET PO PRN (21:13)
[2023-03-16] MEDS: methaDONE HCL 40 MG DISPERSABLE TABLET PO SCH (06:15)
[2023-03-16] MEDS: LIDOCAINE 5% TOPICAL PATCH TP SCH (09:21)
[2023-03-16] MEDS: PRENATAL VITAMINS W/ FOLIC ACID TABLET (FP) PO SCH (09:22)
[2023-03-16] MEDS: LIDOCAINE PATCH REMOVAL MC SCH ×2 (09:22→21:20)
[2023-03-16] MEDS: LISINOPRIL 20 MG TABLET PO SCH ×2 (09:22→21:21)
[2023-03-16] MEDS: NIFEdipine E.R. 90 MG TABLET PO SCH (09:22)
[2023-03-16] MEDS: COLLOIDAL OATMEAL 1 BAR EACH TP PRN (09:23)
[2023-03-16] MEDS: THIAMINE HCL 100 MG TABLET (FP) PO SCH (21:20)
[2023-03-16] MEDS: BISACODYL 5 MG TABLET.DR (FP) PO SCH (21:20)
[2023-03-16] MEDS: SUVOREXANT 15 MG TABLET PO PRN (21:21)
[2023-03-17] MEDS: methaDONE HCL 40 MG DISPERSABLE TABLET PO SCH (06:22)
[2023-03-17] MEDS: LIDOCAINE 5% TOPICAL PATCH TP SCH (09:43)
[2023-03-17] MEDS: LIDOCAINE PATCH REMOVAL MC SCH ×2 (09:44→21:38)
[2023-03-17] MEDS: LISINOPRIL 20 MG TABLET PO SCH ×2 (09:44→21:38)
[2023-03-17] MEDS: NIFEdipine E.R. 90 MG TABLET PO SCH (09:44)
[2023-03-17] MEDS: PRENATAL VITAMINS W/ FOLIC ACID TABLET (FP) PO SCH (09:44)
[2023-03-17] MEDS: SUVOREXANT 15 MG TABLET PO PRN (21:38)
[2023-03-17] MEDS: cloNIDine HCL 0.1 MG TABLET PO PRN (21:38)
[2023-03-17] MEDS: THIAMINE HCL 100 MG TABLET (FP) PO SCH (21:38)
[2023-03-17] MEDS: BISACODYL 5 MG TABLET.DR (FP) PO SCH (21:39)
[2023-03-18] MEDS: methaDONE HCL 40 MG DISPERSABLE TABLET PO SCH (06:17)
[2023-03-18] MEDS: NIFEdipine E.R. 90 MG TABLET PO SCH (09:28)
[2023-03-18] MEDS: LISINOPRIL 20 MG TABLET PO SCH ×2 (09:28→21:11)
[2023-03-18] MEDS: PRENATAL VITAMINS W/ FOLIC ACID TABLET (FP) PO SCH (09:28)
[2023-03-18] MEDS: LIDOCAINE PATCH REMOVAL MC SCH ×2 (09:29→21:11)
[2023-03-18] MEDS: LIDOCAINE 5% TOPICAL PATCH TP SCH (09:29)
[2023-03-18] MEDS: THIAMINE HCL 100 MG TABLET (FP) PO SCH (21:11)
[2023-03-18] MEDS: cloNIDine HCL 0.1 MG TABLET PO PRN (21:11)
[2023-03-18] MEDS: SUVOREXANT 15 MG TABLET PO PRN (21:11)
[2023-03-18] MEDS: BISACODYL 5 MG TABLET.DR (FP) PO SCH (21:13)
[2023-03-19] MEDS: PRENATAL VITAMINS W/ FOLIC ACID TABLET (FP) PO SCH (09:57)
[2023-03-19] MEDS: NIFEdipine E.R. 90 MG TABLET PO SCH (09:57)
[2023-03-19] MEDS: LISINOPRIL 20 MG TABLET PO SCH ×2 (09:57→21:19)
[2023-03-19] MEDS: methaDONE HCL 40 MG DISPERSABLE TABLET PO SCH (09:58)
[2023-03-19] MEDS: LIDOCAINE PATCH REMOVAL MC SCH ×2 (09:59→21:19)
[2023-03-19] MEDS: LIDOCAINE 5% TOPICAL PATCH TP SCH (09:59)
[2023-03-19] MEDS: BISACODYL 5 MG TABLET.DR (FP) PO SCH (21:19)
[2023-03-19] MEDS: THIAMINE HCL 100 MG TABLET (FP) PO SCH (21:19)
[2023-03-19] MEDS: SUVOREXANT 15 MG TABLET PO PRN (21:19)
[2023-03-20] MEDS: methaDONE HCL 40 MG DISPERSABLE TABLET PO SCH (06:13)
[2023-03-20] MEDS: LIDOCAINE 5% TOPICAL PATCH TP SCH (09:43)
[2023-03-20] MEDS: LISINOPRIL 20 MG TABLET PO SCH ×2 (09:44→22:59)
[2023-03-20] MEDS: PRENATAL VITAMINS W/ FOLIC ACID TABLET (FP) PO SCH (09:45)
[2023-03-20] MEDS: NIFEdipine E.R. 90 MG TABLET PO SCH (09:45)
[2023-03-20] MEDS: LIDOCAINE PATCH REMOVAL MC SCH ×2 (09:45→22:59)
[2023-03-20] MEDS: BISACODYL 5 MG TABLET.DR (FP) PO SCH (22:59)
[2023-03-20] MEDS: THIAMINE HCL 100 MG TABLET (FP) PO SCH (22:59)
[2023-03-20] MEDS: SUVOREXANT 15 MG TABLET PO PRN (22:59)
[2023-03-21] MEDS ORDERED: methaDONE HCL 10 MG TABLET PO SCH (06:00)
[2023-03-21] MEDS: LIDOCAINE 5% TOPICAL PATCH TP SCH (09:34)
[2023-03-21] MEDS: PRENATAL VITAMINS W/ FOLIC ACID TABLET (FP) PO SCH (09:34)
[2023-03-21] MEDS: LISINOPRIL 20 MG TABLET PO SCH ×2 (09:35→21:22)
[2023-03-21] MEDS: NIFEdipine E.R. 90 MG TABLET PO SCH (09:35)
[2023-03-21] MEDS: LIDOCAINE PATCH REMOVAL MC SCH (11:39)
[2023-03-21] MEDS: THIAMINE HCL 100 MG TABLET (FP) PO SCH (21:22)
[2023-03-21] MEDS: BISACODYL 5 MG TABLET.DR (FP) PO SCH (21:22)
[2023-03-21] MEDS: SUVOREXANT 15 MG TABLET PO PRN (21:23)
[2023-03-22] MEDS: LIDOCAINE PATCH REMOVAL TD SCH (07:06)
[2023-03-22] MEDS: PRENATAL VITAMINS W/ FOLIC ACID TABLET (FP) PO SCH (09:05)
[2023-03-22] MEDS: LISINOPRIL 20 MG TABLET PO SCH ×2 (09:05→21:12)
[2023-03-22] MEDS: NIFEdipine E.R. 90 MG TABLET PO SCH (09:05)
[2023-03-22] MEDS: LIDOCAINE 5% TOPICAL PATCH TP SCH (09:05)
[2023-03-22] MEDS: THIAMINE HCL 100 MG TABLET (FP) PO SCH (21:11)
[2023-03-22] MEDS: SUVOREXANT 15 MG TABLET PO PRN (21:11)
[2023-03-22] MEDS: BISACODYL 5 MG TABLET.DR (FP) PO SCH (21:11)
[2023-03-23] MEDS: COLLOIDAL OATMEAL 1 BAR EACH TP PRN (07:01)
[2023-03-23] MEDS: LIDOCAINE PATCH REMOVAL TD SCH (07:13)
[2023-03-23] MEDS: LISINOPRIL 20 MG TABLET PO SCH ×2 (09:21→21:33)
[2023-03-23] MEDS: PRENATAL VITAMINS W/ FOLIC ACID TABLET (FP) PO SCH (09:21)
[2023-03-23] MEDS: NIFEdipine E.R. 90 MG TABLET PO SCH (09:21)
[2023-03-23] MEDS: LIDOCAINE 5% TOPICAL PATCH TP SCH ×2 (09:22→22:14)
[2023-03-23] MEDS ORDERED: LIDOCAINE PATCH REMOVAL TD PRN (12:32)
[2023-03-23] MEDS: THIAMINE HCL 100 MG TABLET (FP) PO SCH (21:33)
[2023-03-23] MEDS: cloNIDine HCL 0.1 MG TABLET PO PRN (21:33)
[2023-03-23] MEDS: BISACODYL 5 MG TABLET.DR (FP) PO SCH (21:33)
[2023-03-23] MEDS: SUVOREXANT 15 MG TABLET PO PRN (21:34)
[2023-03-24] MEDS: LISINOPRIL 20 MG TABLET PO SCH ×2 (09:41→21:25)
[2023-03-24] MEDS: NIFEdipine E.R. 90 MG TABLET PO SCH (09:41)
[2023-03-24] MEDS: PRENATAL VITAMINS W/ FOLIC ACID TABLET (FP) PO SCH (09:41)
[2023-03-24] MEDS: BISACODYL 5 MG TABLET.DR (FP) PO SCH (21:25)
[2023-03-24] MEDS: THIAMINE HCL 100 MG TABLET (FP) PO SCH (21:25)
[2023-03-24] MEDS: LIDOCAINE 5% TOPICAL PATCH TP SCH (21:25)
[2023-03-25] MEDS: NIFEdipine E.R. 90 MG TABLET PO SCH (09:53)
[2023-03-25] MEDS: LISINOPRIL 20 MG TABLET PO SCH ×2 (09:53→21:21)
[2023-03-25] MEDS: PRENATAL VITAMINS W/ FOLIC ACID TABLET (FP) PO SCH (09:53)
[2023-03-25] MEDS: THIAMINE HCL 100 MG TABLET (FP) PO SCH (21:22)
[2023-03-25] MEDS: hydrOXYzine PAMOATE 25 MG CAPSULE (FP) PO PRN (21:24)
[2023-03-25] MEDS: LIDOCAINE 5% TOPICAL PATCH TP SCH (21:51)
[2023-03-25] MEDS: BISACODYL 5 MG TABLET.DR (FP) PO SCH (21:51)
[2023-03-26 07:26] VITALS: RESP 18; TEMP 97.9
[2023-03-26 09:03] VITALS: BP 154/94; PULSE 109
[2023-03-26] MEDS: NIFEdipine E.R. 90 MG TABLET PO SCH (09:12)
[2023-03-26] MEDS: PRENATAL VITAMINS W/ FOLIC ACID TABLET (FP) PO SCH (09:13)
[2023-03-26] MEDS: LISINOPRIL 20 MG TABLET PO SCH (09:13)
== END 2023-03-26 09:26 | disposition home or self-care (01) | DRG 772 ==
LOC: YASAS 12:29 → Y3E 16:06
PROVIDERS: ADMIT Allergy & Immunology; ATTEND Psychiatry & Neurology Pain Medicine
PROC: HZ42ZZZ Group Counseling for Substance Abuse Treatment, Cognitive-Behavioral (ICD-10-PCS; principal; 2023-02-24)
DX: F11.20 Opioid dependence, uncomplicated (principal); F10.20 Alcohol dependence, uncomplicated; F14.20 Cocaine dependence, uncomplicated; F19.282 Other psychoactive substance dependence with psychoactive substance-induced sleep disorder; F19.24 Other psychoactive substance dependence with psychoactive substance-induced mood disorder; F32.A Depression, unspecified; I10 Essential (primary) hypertension; M54.40 Lumbago with sciatica, unspecified side; G89.29 Other chronic pain; Z87.891 Personal history of nicotine dependence
CPT/HCPCS: 36415; 80053; 81003; 85027; 86780; 86803; 87811; C9803-CS; U0003; U0005